=== PATIENT | female | born 1980 | race Caucasian/White ===

== ENCOUNTER → 2016-08-13 | Day surgery (SDC) | payer OTHER ==
[~2016-08-13] VITALS: Ht 157.5 cm; Wt 82.0 kg
[~2016-08-13] MED LIST: DOCUSATE SODIU100 MG PO; DULERA 100 MCG/13 GM IH; ENDOCET 5-3251 EAC1 PO; ENDOCET 5-3251 EACH PO; FLEXERIL10 MG PO; IBUPROFEN800 MG PO; LEXAPRO10 MG PO; MOTRIN800 MG PO; NORCO 5/3251 TABLET PO; PRENATAL TABLE1 EAC3 PO; PROCTOFOAM-HC10 GM PR; PULMICORT FLE180 MCG IH; SPRINTEC1 EACH PO; VITAMIN B12 PO; VITAMIN D31000 UNIT PO; WELLBUTRIN XL150 MG PO; WOMEN'S DAILY1 EAC4 PO
[2016-08-13 07:22] VITALS: BP 104/65
[2016-08-13 11:10] VITALS: BP 125/76
[2016-08-13 12:06] VITALS: BP 114/74
[2016-08-13 13:00] VITALS: BP 126/87
== END | disposition home or self-care (01) ==
LOC: SDC 06:55
PROC: 0UBC7ZX Excision of Cervix, Via Natural or Artificial Opening, Diagnostic (ICD-10-PCS; principal; 2016-08-13)
DX: D06.9 Carcinoma in situ of cervix, unspecified (principal); N87.1 Moderate cervical dysplasia; Z87.891 Personal history of nicotine dependence; F41.8 Other specified anxiety disorders; E66.09 Other obesity due to excess calories; Z68.34 Body mass index [BMI] 34.0-34.9, adult; E28.2 Polycystic ovarian syndrome; Z82.49 Family history of ischemic heart disease and other diseases of the circulatory system; Z84.2 Family history of other diseases of the genitourinary system; Z83.3 Family history of diabetes mellitus; Z82.62 Family history of osteoporosis; Z82.3 Family history of stroke; Z88.0 Allergy status to penicillin
CPT/HCPCS: 88305; 88342 TC; J0131; J1100; J1885; J2250; J2405; J3010; J7120

== ENCOUNTER 2017-06-27 05:31 | Day surgery (SDC) | payer OTHER ==
[~2017-06-27] VITALS: Ht 160 cm; Wt 97.5 kg
[~2017-06-27 05:31] MED LIST changes: +FIORICET,ESG1 TABLET PO; -LEXAPRO10 MG PO; +PROZAC20 MG PO; +VENTOLIN HFA18 GM IH; -WELLBUTRIN XL150 MG PO; +WELLBUTRIN XL300 MG PO
[2017-06-27 05:58] VITALS: BP 120/67
[2017-06-27 13:03] VITALS: BP 133/77
[2017-06-27 15:41] LABS: HEMOGLOBIN 11.8 G/DL (11.9-15.5); MCV 86.3 FL (83-99)
[2017-06-27 19:53] VITALS: BP 126/78
[2017-06-28 00:04] VITALS: BP 110/56
[2017-06-28 04:08] VITALS: BP 117/57
[2017-06-28 06:46] LABS: HEMATOCRIT 35.4 % (36.0-46.0); HEMOGLOBIN 11.6 G/DL (11.9-15.5); MCHC 32.8 G/DL (30.0-36.0); MCV 85.5 FL (83-99); PLATELET COUNT 282 K/uL (156-360); RBC DIS.WIDTH-CV 12.8 % (11.8-14.6); RBC DIS.WIDTH-SD 39.4 % (39-53); RED BLOOD COUNT 4.14 M/uL (3.80-5.20); WHITE BLOOD COUNT 7.4 K/uL (4.1-10.2)
[2017-06-28 07:09] VITALS: BP 115/61
[2017-06-28 07:12] LABS: CHLORIDE 103 MEQ/L (99-109); CREATININE 0.8 MG/DL (0.6-1.3); GFR ESTIMATE (CALCULATED) > 59 mL/min/; GLUCOSE 119 mg/dL (70-99); POTASSIUM 4.5 MEQ/L (3.7-5.4); SODIUM 138 MEQ/L (136-147); UREA NITROGEN (BUN) 6 mg/dL (9-23)
[2017-06-28] MEDS ORDERED: ENDOCET 5-3251 EACH PO (08:12)
[2017-06-28] MEDS ORDERED: MOTRIN800 MG PO (08:12)
[2017-06-28 09:21] VITALS: BP 115/61
== END 2017-06-28 12:55 | disposition home or self-care (01) ==
LOC: SDC 05:31 → 2SOUTH 10:15 → 2EASTP 10:15 → ENRESERV 10:37 → 2EASTP 12:58 → SDC 15:14 → 2EASTP 06-28 12:55
PROVIDERS: Obstetrics & Gynecology
DX: N92.0 Excessive and frequent menstruation with regular cycle (principal); D06.9 Carcinoma in situ of cervix, unspecified; N80.0 Endometriosis of uterus; K66.0 Peritoneal adhesions (postprocedural) (postinfection); E66.01 Morbid (severe) obesity due to excess calories; Z68.37 Body mass index [BMI] 37.0-37.9, adult
CPT/HCPCS: 80048; 85014; 85018; 85027; 88307; 94640 76; G0378; J0131; J0690; J1100; J1170; J1885; J2250; J2270; J2405; J2710; J3010; J7120; Q0175; S0020